=== PATIENT | female | born 1950 | race African-American/Black ===

== ENCOUNTER 2024-01-31 12:58 | Inpatient (IN) | payer BC, MEDICAID ==
[~2024-01-31] VITALS: Ht 160 cm; Wt 81.9 kg
[~2024-01-31 12:58] MED LIST: ASA81 PO; COR6.25 PO; EVOL140P3 SUBCUT; LOSA-412 PO; METO-306 PO; [UNRECOGNIZED DRUG - CODE]
[2024-01-31 13:10] VITALS: BP_SYST 138; PULSE 70; RESP 18; TEMP 98.6; O2SAT 97
[2024-01-31 14:18] LABS: BASOPHILS # (AUTO) 0.1 K/uL (0.0-0.2); BASOPHILS % (AUTO) 0.8 % (0.0-2.0); EOSINOPHILS # (AUTO) 0.1 K/uL (0.0-0.4); HEMATOCRIT 39.7 % (36-48); HEMOGLOBIN 12.3 g/dL (12.0-16.0); LYMPHOCYTES # (AUTO) 1.7 K/uL (1.0-5.5); LYMPHOCYTES % (AUTO) 21.7 % (20.5-51.5); MEAN CORPUSCULAR HEMOGLOBIN 25 pg (27-31); MEAN CORPUSCULAR HGB CONC 31 % (32-36); MEAN CORPUSCULAR VOLUME 80 fL (79.0-98.0); MONOCYTES # (AUTO) 0.5 K/uL (0.0-1.0); MONOCYTES % (AUTO) 6.7 % (1.7-9.3); NEUTROPHILS # (AUTO) 5.5 K/uL (1.8-7.7); NEUTROPHILS % (AUTO) 69.8 % (40.0-70.0); PLATELET COUNT (AUTO) 309 K/uL (130-430); RED BLOOD CELL COUNT(AUTO) 4.97 MIL/uL (4.2-6.2); RED CELL DISTRIBUTION WIDTH 14.7 % (9.0-15.0); WHITE BLOOD COUNT (AUTO) 7.8 K/uL (4.8-10.8)
[2024-01-31 14:39] LABS: PROTHROMBIN TIME 10.2 SECS (9.5-12.5)
[2024-01-31 14:49] LABS: ALANINE AMINOTRANSFERASE 36 U/L (12-78); ALBUMIN 3.5 g/dL (3.4-4.8); ANION GAP 8 (5-15); ASPARTATE AMINOTRANSFERASE 39 U/L (10-37); CALCIUM 8.6 mg/dL (8.4-11.0); CARBON DIOXIDE 26 mmol/L (23-29); CHLORIDE 107 mmol/L (98-107); CREATININE 0.41 mg/dL (0.55-1.30); GLUCOSE 211 mg/dL (74-106); POTASSIUM 3.8 mmol/L (3.5-5.1); SODIUM SERUM 141 mmol/L (136-145); TOTAL BILIRUBIN 0.4 mg/dL (0.0-1.0); TOTAL PROTEIN, SERUM 7.3 g/dL (6.4-8.3); UREA NITROGEN, BLOOD 13 mg/dL (8-21)
[2024-01-31 14:58] LABS: BILIRUBIN,DIRECT 0.1 mg/dL (0.0-0.3)
[2024-01-31] MEDS: ASPIRIN 325 MG TABLET (ECOTRIN) PO ONE (15:30)
[2024-01-31] MEDS ORDERED: ONDANSETRON HCL 4 MG/2 ML VIAL IVP PRN (18:30)
[2024-01-31] MEDS ORDERED: NITROGLYCERIN 0.4 MG TAB.SUBL SL PRN (18:30)
[2024-01-31] MEDS ORDERED: MORPHINE 2 MG/ML INJ. SYRINGE IVP PRN (18:30)
[2024-01-31] MEDS ORDERED: HEPARIN 25,000 UNITS/D5W 250ML 250 ML IV ONE (19:00)
[2024-01-31] MEDS ORDERED: HEPARIN SODIUM,PORCINE 2000 UNITS/0.4 ML BOLUS IVP PRN (19:45)
[2024-01-31] MEDS ORDERED: HEPARIN SODIUM,PORCINE 3000 UNITS/0.6 ML BOLUS IVP PRN (19:45)
[2024-01-31] MEDS ORDERED: CARVEDILOL 6.25 MG TABLET (COREG) ONE (19:53)
[2024-01-31] MEDS: CARVEDILOL 6.25 MG TABLET (COREG) PO SCH (19:55)
[2024-01-31] MEDS: HEPARIN SODIUM,PORCINE 5,000 UNITS/ML VIAL IV ONE (19:55)
[2024-01-31 20:07] LABS: CHOLESTEROL 126 mg/dL (<200); HDL CHOLESTEROL 44 mg/dL (>55); TRIGLYCERIDES 166 mg/dL (30-150)
[2024-01-31 21:30] VITALS: BP_SYST 168; PULSE 70; RESP 19; TEMP 98; O2SAT 97
[2024-01-31] MEDS: ACETAMINOPHEN 325 MG TABLET PO PRN (22:26)
[2024-02-01 00:29] VITALS: BP_SYST 124; PULSE 65; RESP 18; TEMP 97.5
[2024-02-01] MEDS: HEPARIN 25,000 UNITS in 250 ML PREMIX IV PRN (01:51)
[2024-02-01 08:00] VITALS: BP_SYST 155; PULSE 64; RESP 18; TEMP 97.9; O2SAT 95
[2024-02-01 08:21] LABS: BASOPHILS % (AUTO) 0.5 % (0.0-2.0); EOSINOPHILS # (AUTO) 0.2 K/uL (0.0-0.4); EOSINOPHILS % (AUTO) 4.1 % (0.0-4.0); HEMATOCRIT 36.8 % (36-48); HEMOGLOBIN 11.6 g/dL (12.0-16.0); LYMPHOCYTES # (AUTO) 1.7 K/uL (1.0-5.5); LYMPHOCYTES % (AUTO) 35.1 % (20.5-51.5); MEAN CORPUSCULAR HEMOGLOBIN 25 pg (27-31); MEAN CORPUSCULAR HGB CONC 31 % (32-36); MEAN CORPUSCULAR VOLUME 80 fL (79.0-98.0); MONOCYTES # (AUTO) 0.5 K/uL (0.0-1.0); MONOCYTES % (AUTO) 9.2 % (1.7-9.3); NEUTROPHILS # (AUTO) 2.5 K/uL (1.8-7.7); NEUTROPHILS % (AUTO) 51.1 % (40.0-70.0); PLATELET COUNT (AUTO) 272 K/uL (130-430); RED BLOOD CELL COUNT(AUTO) 4.59 MIL/uL (4.2-6.2); RED CELL DISTRIBUTION WIDTH 14.6 % (9.0-15.0)
[2024-02-01 08:38] LABS: ALANINE AMINOTRANSFERASE 31 U/L (12-78); ANION GAP 1 (5-15); ASPARTATE AMINOTRANSFERASE 33 U/L (10-37); CALCIUM 8.5 mg/dL (8.4-11.0); CARBON DIOXIDE 27 mmol/L (23-29); CHLORIDE 105 mmol/L (98-107); CREATININE 0.37 mg/dL (0.55-1.30); GLUCOSE 112 mg/dL (74-106); POTASSIUM 3.4 mmol/L (3.5-5.1); SODIUM SERUM 133 mmol/L (136-145); TOTAL BILIRUBIN 0.6 mg/dL (0.0-1.0); TOTAL PROTEIN, SERUM 6.4 g/dL (6.4-8.3); UREA NITROGEN, BLOOD 9 mg/dL (8-21)
[2024-02-01] MEDS: ATORVASTATIN 20 MG TABLET PO SCH (09:19)
[2024-02-01] MEDS: LOSARTAN POTASSIUM 25 MG TABLET PO SCH ×2 (09:19→21:28)
[2024-02-01] MEDS: ASPIRIN 81 MG TAB.CHEW PO SCH (09:20)
[2024-02-01 11:13] VITALS: BP_SYST 138; PULSE 60; RESP 16; TEMP 98.2; O2SAT 96
[2024-02-01] MEDS: ISOSORBIDE MONONITRATE 30 MG TAB.ER.24H PO ONE (11:35)
[2024-02-01] MEDS: CLOPIDOGREL BISULFATE 75 MG TABLET PO ONE (11:36)
[2024-02-01 16:14] VITALS: BP_SYST 130; PULSE 64; RESP 17; TEMP 98; O2SAT 95
[2024-02-01] MEDS: HYDROcodone/ACETAMIN 5-325 MG TAB (NORCO/ VICODIN) PO PRN (17:19)
[2024-02-01] MEDS ORDERED: DEXTROSE 50% JECT 50 ML DISP.SYRIN IVP PRN (17:30)
[2024-02-01] MEDS ORDERED: INSULIN REGULAR, HUMAN 100 UNITS/ML, 3 ML VIAL (humuLIN R) SUBCUT PRN (17:30)
[2024-02-01] MEDS: INSULIN REGULAR, HUMAN 100 UNITS/ML, 3 ML VIAL (humuLIN R) SUBCUT PRN (17:47)
[2024-02-01] MEDS ORDERED: ACETAMINOPHEN 500 MG TABLET PO PRN (19:00)
[2024-02-01] MEDS: GLUCOSE (DEXTROSE) ORAL GEL -Adults PO ONE (19:03)
[2024-02-01 20:00] VITALS: BP_SYST 144; PULSE 78; RESP 18; TEMP 97.5; O2SAT 96
[2024-02-01] MEDS: ACETAMINOPHEN 500 MG TABLET PO PRN (21:29)
[2024-02-01] MEDS: HEPARIN SODIUM,PORCINE 5,000 UNITS/ML VIAL SUBCUT SCH (21:31)
[2024-02-02 01:00] VITALS: BP_SYST 139; PULSE 84; RESP 18; TEMP 98.2; O2SAT 96
[2024-02-02 06:05] LABS: BASOPHILS % (AUTO) 0.4 % (0.0-2.0); EOSINOPHILS # (AUTO) 0.2 K/uL (0.0-0.4); EOSINOPHILS % (AUTO) 3.7 % (0.0-4.0); HEMATOCRIT 34.8 % (36-48); HEMOGLOBIN 10.9 g/dL (12.0-16.0); LYMPHOCYTES # (AUTO) 1.6 K/uL (1.0-5.5); LYMPHOCYTES % (AUTO) 29.6 % (20.5-51.5); MEAN CORPUSCULAR HEMOGLOBIN 25 pg (27-31); MEAN CORPUSCULAR HGB CONC 31 % (32-36); MEAN CORPUSCULAR VOLUME 80 fL (79.0-98.0); MONOCYTES # (AUTO) 0.6 K/uL (0.0-1.0); MONOCYTES % (AUTO) 11.1 % (1.7-9.3); NEUTROPHILS % (AUTO) 55.2 % (40.0-70.0); PLATELET COUNT (AUTO) 262 K/uL (130-430); RED BLOOD CELL COUNT(AUTO) 4.33 MIL/uL (4.2-6.2); RED CELL DISTRIBUTION WIDTH 14.5 % (9.0-15.0); WHITE BLOOD COUNT (AUTO) 5.5 K/uL (4.8-10.8)
[2024-02-02 07:01] LABS: ALANINE AMINOTRANSFERASE 32 U/L (12-78); ALBUMIN 2.9 g/dL (3.4-4.8); ANION GAP 8 (5-15); ASPARTATE AMINOTRANSFERASE 20 U/L (10-37); CALCIUM 8.5 mg/dL (8.4-11.0); CARBON DIOXIDE 26 mmol/L (23-29); CHLORIDE 107 mmol/L (98-107); GLUCOSE 140 mg/dL (74-106); POTASSIUM 3.8 mmol/L (3.5-5.1); SODIUM SERUM 141 mmol/L (136-145); TOTAL BILIRUBIN 0.8 mg/dL (0.0-1.0); UREA NITROGEN, BLOOD 10 mg/dL (8-21)
[2024-02-02 08:38] VITALS: BP_SYST 114; PULSE 63; RESP 18; TEMP 98; O2SAT 99
[2024-02-02] MEDS: CLOPIDOGREL BISULFATE 75 MG TABLET PO SCH (08:42)
[2024-02-02] MEDS: ISOSORBIDE MONONITRATE 30 MG TAB.ER.24H PO SCH (08:43)
[2024-02-02 11:44] VITALS: BP_SYST 136; PULSE 60; RESP 16; TEMP 98.4; O2SAT 95
[2024-02-02] MEDS ORDERED: ISOS30TA85 PO (11:48)
[2024-02-02] MEDS ORDERED: CLOP75TA32 PO (11:48)
[2024-02-02] MEDS ORDERED: NITSL SL (11:48)
[2024-02-02 12:55] VITALS: BP_SYST 136; PULSE 60; RESP 18; TEMP 98.4; O2SAT 95
== END 2024-02-02 14:00 | disposition home or self-care (01) | DRG 282 ==
LOC: SED 12:58 → STU 18:12 → SMU 02-02 10:25
PROVIDERS: ADMIT Internal Medicine; ATTEND Internal Medicine
DX: I21.4 Non-ST elevation (NSTEMI) myocardial infarction (principal); E78.5 Hyperlipidemia, unspecified; I10 Essential (primary) hypertension; G72.41 Inclusion body myositis [IBM]; I25.119 Atherosclerotic heart disease of native coronary artery with unspecified angina pectoris; E10.9 Type 1 diabetes mellitus without complications; Z86.73 Personal history of transient ischemic attack (TIA), and cerebral infarction without residual deficits; Z86.718 Personal history of other venous thrombosis and embolism; Z79.899 Other long term (current) drug therapy
CPT/HCPCS: 36415; 71045; 80048; 80053; 80061; 80076; 82948; 83037; 83880; 84484; 85025; 85610; 85730; 93005; 99285; G0378; J1644; J1815